=== PATIENT | female | born 1970 | race American Indian/Alaskan Native ===

== ENCOUNTER 2020-02-24 11:51 | Emergency (ER) | payer SELFPAY ==
[2020-02-24] MEDS ORDERED: IBUPROFEN 800 MG TAB PO ONE (15:27)
--- NOTE | 2020-02-24 15:33 | Emergency Department Report ---
ED General Adult HPI - General Chief complaint: Extremity Injury, Upper Stated complaint: RT ARM INJURY AT WORK Time Seen by Provider: 02/24/20 14:48 Source: patient Mode of arrival: Ambulatory Limitations: No Limitations - History of Present Illness Initial comments: 49-year-old -[place] female patient presents with complaints of right elbow pain shooting down into her handx last night. Patient states her symptoms started immediately after lifting a heavy object last night at work. She rates her current pain as a 9/10 in severity and states it worsens with movement of her hand and elbow. She denies any numbness/tingling/weakness into her arm or hand and also reports it feels like a rushing sensation. No previous elbow injuries or redness per patient. -: Sudden - Related Data Previous Rx's Medication Instructions Recorded Last Taken Type Diclofenac Sodium 50 mg PO TID PRN #21 tablet. 02/24/20 Unknown Rx Allergies Allergy/AdvReac Type Severity Reaction Status Date / Time No Known Allergies Allergy Unverified 10/29/13 10:12 ED Review of Systems ROS: Stated complaint: RT ARM INJURY AT WORK Other details as noted in HPI Constitutional: denies: chills, diaphoresis, fever, malaise, weakness Musculoskeletal: arthralgia. denies: joint swelling Skin: denies: rash, lesions, change in color ED Past Medical Hx - Past Medical History Previous Medical History?: No - Surgical History Additional Surgical History: right shoulder and tubal ligation - Social History Smoking Status: Never Smoker - Medications Home Medications: Home Medications Medication Instructions Recorded Confirmed Last Taken Type Diclofenac Sodium 50 mg PO TID PRN #21 tablet. 02/24/20 Unknown Rx ED Physical Exam - General Limitations: No Limitations General appearance: alert, in no apparent distress - Head Head exam: Present: atraumatic, normocephalic - Eye Eye exam: Present: normal appearance. Absent: scleral icterus - Respiratory Respiratory exam: Present: normal lung sounds bilaterally. Absent: respiratory distress - Cardiovascular Cardiovascular Exam: Present: regular rate, normal rhythm. Absent: systolic murmur, diastolic murmur, rubs, gallop - Expanded Upper Extremity Exam Right Elbow exam: Present: tenderness (lateral tenderness ). Absent: swelling, abrasion, laceration, ecchymosis, erythema Hand Wrist exam: Present: normal inspection, full ROM. Absent: tenderness, swelling - Neurological Exam Neurological exam: Present: alert, oriented X3 - Psychiatric Psychiatric exam: Present: normal affect, normal mood - Skin Skin exam: Present: warm, dry, intact, normal color. Absent: rash, cyanosis, diaphoretic, ecchymosis ED Course Vital Signs 02/24/20 02/24/20 02/24/20 12:11 16:38 17:36 Temperature 98.1 F Pulse Rate 113 H 95 H Respiratory 19 18 18 Rate Blood Pressure 129/81 Blood Pressure 136/72 [Right] O2 Sat by Pulse 100 100 Oximetry ED Medical Decision Making - Radiology Data Radiology results: report reviewed RIGHT ELBOW, 3 VIEWS INDICATION / CLINICAL INFORMATION: lateral pain. COMPARISON: None available. FINDINGS: No fracture, dislocation, or joint effusion identified. No significant d egenerative change. No appreciable soft tissue abnormality. IMPRESSION: Negative exam. - Medical Decision Making Patient here with right elbow pain after heavy lifting at work yesterday. Tenderness to palpation of the right epicondyle noted on exam so x-ray was performed. X-ray is negative for any acute findings. Suspect symptoms are due to tennis elbow. Recommend patient wear an elbow sleeve and follow-up with orthopedics. She is well-appearing and stable for discharge home. Strict return precautions were discussed in detail with patient who verbalizes un derstanding. Critical care attestation.: If time is entered above; I have spent that time in minutes in the direct care of this critically ill patient, excluding procedure time. ED Disposition Clinical Impression: Lateral epicondylitis (tennis elbow) Qualifiers: Laterality: right Qualified Code(s): M77.11 - Lateral epicondylitis, right elbow Disposition: TO HOME OR SELFCARE Is pt being admited?: No Condition: Stable Instructions: Tennis Elbow (ED) Prescriptions: Diclofenac Sodium 50 mg PO TID PRN #21 tablet.dr COLUNGA Reason: pain Referrals: AFTAB PETERSON MD [Staff Physician] - 3-5 Days Forms: Work/School Release Form(ED)
--- NOTE | 2020-02-24 16:18 | XRay Report ---
RIGHT ELBOW, 3 VIEWS INDICATION / CLINICAL INFORMATION: lateral pain. COMPARISON: None available. FINDINGS: No fracture, dislocation, or joint effusion identified. No significant degenerative change. No apprec iable soft tissue abnormality. IMPRESSION: Negative exam. Signer Name: Cynthia Hopper MD Signed: 02/24/2020 4:13 PM Workstation Name: [id number]
[2020-02-24 18:09] VITALS: BP 136/72
== END 2020-02-24 17:36 | disposition home or self-care (01) ==
LOC: ED 11:51
DX: M77.11 Lateral epicondylitis, right elbow (principal); Z98.51 Tubal ligation status
CPT/HCPCS: 99283

== ENCOUNTER 2020-07-17 10:51 | Emergency (ER) | payer SELFPAY ==
[2020-07-17 11:09] VITALS: BP 133/55
--- NOTE | 2020-07-17 11:17 | Emergency Department Report ---
ED General Adult HPI - General Chief complaint: Pain General Stated complaint: BODY PAIN/CHILL/NAUSEA Time Seen by Provider: 07/17/20 11:10 Source: patient Mode of arrival: Ambulatory Limitations: No Limitations - History of Present Illness Initial comments: Patient is a 50-year-old female presents emergency room complaints of urinary frequency that began 2 weeks ago. She states over the last week she has began experiencing suprapubic abdominal pressure, back pain, odor to her urine her urine, nausea. She denies any dysuria, vaginal discharge, vomiting, diarrhea, fever. She has a past medical history of hyperthyroidism and takes methimazole. No allergies to medications. Last menstrual cycle 06/21/2021. - Related Data Previous Rx's Medication Instructions Recorded Last Taken Type Diclofenac Sodium 50 mg PO TID PRN #21 tablet. 02/24/20 Unknown Rx Docusate Sodium [Colace] 100 mg PO BID #60 capsule 07/17/20 Unknown Rx Ferrous Sulfate [Ferrous Sulfate 324 mg PO DAILY #30 tablet. 07/17/20 Unknown Rx 324 MG] methOCARBAMOL [Robaxin TAB] 500 mg PO BID PRN #14 tab 07/17/20 Unknown Rx Allergies Allergy/AdvReac Type Severity Reaction Status Date / Time No Known Allergies Allergy Unverified 10/29/13 10:12 ED Review of Systems ROS: Stated complaint: BODY PAIN/CHILL/NAUSEA Other details as noted in HPI Comment: All other systems reviewed and negative ED Past Medical Hx - Past Medical History Previous Medical History?: No - Surgical History Past Surgical History?: Yes Additional Surgical History: right shoulder and tubal ligation - Social History Smoking Status: Never Smoker Substance Use Type: Other - Medications Home Medications: Home Medications Medication Instructions Recorded Confirmed Last Taken Type Diclofenac Sodium 50 mg PO TID PRN #21 tablet. 02/24/20 Unknown Rx Docusate Sodium [Colace] 100 mg PO BID #60 capsule 07/17/20 Unknown Rx Ferrous Sulfate [Ferrous Sulfate 324 mg PO DAILY #30 tablet. 07/17/20 Unknown Rx 324 MG] methOCARBAMOL [Robaxin TAB] 500 mg PO BID PRN #14 tab 07/17/20 Unknown Rx ED Physical Exam - General Limitations: No Limitations General appearance: alert, in no apparent distress - Head Head exam: Present: atraumatic, normocephalic - Eye Eye exam: Present: normal appearance - ENT ENT exam: Present: mucous membranes moist - Respiratory Respiratory exam: Present: normal lung sounds bilaterally. Absent: respiratory distress, wheezes, rales, rhonchi, stridor, chest wall tenderness, accessory muscle use, decreased breath sounds, prolonged expiratory - Cardiovascular Cardiovascular Exam: Present: regular rate, normal rhythm, normal heart sounds. Absent: systolic murmur, diastolic murmur, rubs, gallop - GI/Abdominal GI/Abdominal exam: Present: soft, normal bowel sounds. Absent: distended, tenderness, guarding, rebound, rigid - Back Exam Back exam: Absent: CVA tenderness (R), CVA tenderness (L) - Neurological Exam Neurological exam: Present: alert, oriented X3 - Psychiatric Psychiatric exam: Present: normal affect, normal mood - Skin Skin exam: Present: warm, dry, intact ED Course Vital Signs 07/17/20 11:07 Temperature 98.4 F Pulse Rate 96 H Respiratory 20 Rate Blood Pressure 133/55 O2 Sat by Pulse 100 Oximetry ED Medical Decision Making - Lab Data Result diagrams: 07/17/20 12:45 07/17/20 12:45 Lab Results 07/17/20 07/17/20 07/17/20 Range/Units 11:38 12:45 12:45 WBC 6.2 (4.5-11.0) K/mm3 RBC 4.51 (3.65-5.03) M/mm3 Hgb 7.9 L (10.1-14.3) gm/dl Hct 26.9 L (30.3-42.9) % MCV 60 L (79-97) fl MCH 18 L (28-32) pg MCHC 29 L (30-34) % RDW 22.6 H (13.2-15.2) % Plt Count 319 (140-440) K/mm3 Lymph % (Auto) Pipe Racker Add Manual Diff Complete Total Counted 100 Seg Neutrophils % Pipe Racker Seg Neuts % (Manual) 46.0 (40.0-70.0) % Lymphocytes % (Manual) 42.0 H (13.4-35.0) % Monocytes % (Manual) 4.0 (0.0-7.3) % Eosinophils % (Manual) 3.0 (0.0-4.3) % Metamyelocytes % 5.0 % Nucleated RBC % Not Reportable Seg Neutrophils # Man 2.9 (1.8-7.7) K/mm3 Band Neutrophils # 0.0 K/mm3 Lymphocytes # (Manual) 2.6 (1.2-5.4) K/mm3 Abs React Lymphs (Man) 0.0 K/mm3 Monocytes # (Manual) 0.2 (0.0-0.8) K/mm3 Eosinophils # (Manual) 0.2 (0.0-0.4) K/mm3 Basophils # (Manual) 0.0 (0.0-0.1) K/mm3 Metamyelocytes # 0.3 K/mm3 Myelocytes # 0.0 K/mm3 Promyelocytes # 0.0 K/mm3 Blast Cells # 0.0 K/mm3 WBC Morphology Not Reportable Hypersegmented Neuts Not Reportable Hyposegmented Neuts Not Reportable Hypogranular Neuts Not Reportable Smudge Cells Not Reportable Toxic Granulation Not Reportable Toxic Vacuolation Not Reportable Dohle Bodies Not Reportable Pelger-Huet Anomaly Not Reportable Siena Rods Not Reportable Platelet Estimate Consistent w auto Clumped Platelets Not Reportable Plt Clumps, EDTA Not Reportable Large Platelets Not Reportable Giant Platelets Not Reportable Platelet Satelliting Not Reportable Plt Morphology Comment Not Reportable RBC Morphology Not Reportable Dimorphic RBCs Not Reportable Polychromasia Not Reportable Hypochromasia 2+ Poikilocytosis Not Reportable Anisocytosis Not Reportable Microcytosis Not Reportable Macrocytosis Not Reportable Spherocytes Not Reportable Pappenheimer Bodies Not Reportable Sickle Cells Not Reportable Target Cells 2+ Tear Drop Cells Not Reportable Ovalocytes Not Reportable Helmet Cells Not Reportable Tony-Finley Bodies Not Reportable Vernon Rings Not Reportable Sumner Cells Not Reportable Bite Cells Not Reportable Crenated Cell Not Reportable Elliptocytes Few Acanthocytes (Spur) Not Reportable Rouleaux Not Reportable Hemoglobin C Crystals Not Reportable Schistocytes Not Reportable Malaria parasites Not Reportable Jostin Bodies Not Reportable Hem Pathologist Commnt No Sodium 139 (137-145) mmol/L Potassium 4.3 (3.6-5.0) mmol/L Chloride 103.7 (98-107) mmol/L Carbon Dioxide 25 (22-30) mmol/L Anion Gap 15 mmol/L BUN 11 (7-17) mg/dL Creatinine 0.5 L (0.6-1.2) mg/dL Estimated GFR > 60 ml/min BUN/Creatinine Ratio 22 % Glucose 95 (65-100) mg/dL Calcium 9.1 (8.4-10.2) mg/dL Total Bilirubin 0.20 (0.1-1.2) mg/dL AST 15 (5-40) units/L ALT 12 (7-56) units/L Alkaline Phosphatase 70 (35-129) units/L Total Protein 6.6 (6.3-8.2) g/dL Albumin 4.1 (3.9-5) g/dL Albumin/Globulin Ratio 1.6 % Urine Color Yellow (Yellow) Urine Turbidity Clear (Clear) Urine pH 8.0 H (5.0-7.0) Ur Specific Laurens 1.025 (1.003-1.030) Urine Protein 30 mg/dl (Negative) mg/dL Urine Glucose (UA) Neg (Negative) mg/dL Urine Ketones Neg (Negative) mg/dL Urine Blood Neg (Negative) Urine Nitrite Neg (Negative) Urine Bilirubin Neg (Negative) Urine Urobilinogen < 2.0 (<2.0) mg/dL Ur Leukocyte Esterase Neg (Negative) Urine WBC (Auto) < 1.0 (0.0-6.0) /HPF Urine RBC (Auto) 2.0 (0.0-6.0) /HPF U Epithel Cells (Auto) 4.0 (0-13.0) /HPF Urine Mucus Few /HPF Urine HCG, Qual Negative (Negative) 07/17/20 Range/Units 12:45 WBC (4.5-11.0) K/mm3 RBC (3.65-5.03) M/mm3 Hgb (10.1-14.3) gm/dl Hct (30.3-42.9) % MCV (79-97) fl MCH (28-32) pg MCHC (30-34) % RDW (13.2-15.2) % Plt Count (140-440) K/mm3 Lymph % (Auto) Add Manual Diff Total Counted Seg Neutrophils % Seg Neuts % (Manual) (40.0-70.0) % Lymphocytes % (Manual) (13.4-35.0) % Monocytes % (Manual) (0.0-7.3) % Eosinophils % (Manual) (0.0-4.3) % Metamyelocytes % % Nucleated RBC % Seg Neutrophils # Man (1.8-7.7) K/mm3 Band Neutrophils # K/mm3 Lymphocytes # (Manual) (1.2-5.4) K/mm3 Abs React Lymphs (Man) K/mm3 Monocytes # (Manual) (0.0-0.8) K/mm3 Eosinophils # (Manual) (0.0-0.4) K/mm3 Basophils # (Manual) (0.0-0.1) K/mm3 Metamyelocytes # K/mm3 Myelocytes # K/mm3 Promyelocytes # K/mm3 Blast Cells # K/mm3 WBC Morphology TNR Hypersegmented Neuts Hyposegmented Neuts Hypogranular Neuts Smudge Cells Toxic Granulation Toxic Vacuolation Dohle Bodies Pelger-Huet Anomaly Siena Rods Platelet Estimate Clumped Platelets Plt Clumps, EDTA Large Platelets Giant Platelets Platelet Satelliting Plt Morphology Comment RBC Morphology Dimorphic RBCs Polychromasia Hypochromasia Poikilocytosis Anisocytosis Microcytosis Macrocytosis Spherocytes Pappenheimer Bodies Sickle Cells Target Cells Tear Drop Cells Ovalocytes Helmet Cells Tony-Finley Bodies Vernon Rings Sumner Cells Bite Cells Crenated Cell Elliptocytes Acanthocytes (Spur) Rouleaux Hemoglobin C Crystals Schistocytes Malaria parasites Jostin Bodies Hem Pathologist Commnt Sodium (137-145) mmol/L Potassium (3.6-5.0) mmol/L Chloride (98-107) mmol/L Carbon Dioxide (22-30) mmol/L Anion Gap mmol/L BUN (7-17) mg/dL Creatinine (0.6-1.2) mg/dL Estimated GFR ml/min BUN/Creatinine Ratio % Glucose (65-100) mg/dL Calcium (8.4-10.2) mg/dL Total Bilirubin (0.1-1.2) mg/dL AST (5-40) units/L ALT (7-56) units/L Alkaline Phosphatase (35-129) units/L Total Protein (6.3-8.2) g/dL Albumin (3.9-5) g/dL Albumin/Globulin Ratio % Urine Color (Yellow) Urine Turbidity (Clear) Urine pH (5.0-7.0) Ur Specific Laurens (1.003-1.030) Urine Protein (Negative) mg/dL Urine Glucose (UA) (Negative) mg/dL Urine Ketones (Negative) mg/dL Urine Blood (Negative) Urine Nitrite (Negative) Urine Bilirubin (Negative) Urine Urobilinogen (<2.0) mg/dL Ur Leukocyte Esterase (Negative) Urine WBC (Auto) (0.0-6.0) /HPF Urine RBC (Auto) (0.0-6.0) /HPF U Epithel Cells (Auto) (0-13.0) /HPF Urine Mucus /HPF Urine HCG, Qual (Negative) - Medical Decision Making Patient is a 50-year-old female presents emergency room complaints of urinary frequency that began 2 weeks ago. She states over the last week she has began experiencing suprapubic abdominal pressure, back pain, odor to her urine her urine, nausea. She denies any dysuria, vaginal discharge, vomiting, diarrhea, fever. She has a past medical history of hyperthyroidism and takes methimazole. No allergies to medications. Last menstrual cycle 06/21/2021. Vitals are normal. No abdominal tenderness on exam, no guarding, urine, no rigidity, nor bowel sounds, no peritoneal signs. Labs with stable anemia. UA is within normal limits. Urine is negative. Offered patient pelvic examination and STD testing/prophylactic treatment and she politely declined and states that "she does not have an STD." Patient be referred to [facility] and primary care. Patient given prescription for Robaxin, ferrous sulfate, Colace. Advised patient Please take medication as prescribed. Do not drive or operate machinery while taking muscle max Robaxin. Increase your fluid intake. Follow-up with your primary care doctor. Follow-up with [facility]. Return to emergency room for any new or worsening symptoms. Critical care attestation.: If time is entered above; I have spent that time in minutes in the direct care of this critically ill patient, excluding procedure time. ED Disposition Clinical Impression: Urinary frequency, Microcytic anemia Disposition: TO HOME OR SELFCARE Is pt being admited?: No Does the pt Need Aspirin: No Condition: Stable Instructions: Urinary Frequency, Adult, Iron-Rich Diet Additional Instructions: Please take medication as prescribed. Do not drive or operate machinery while taking muscle max Robaxin. Increase your fluid intake. Follow-up with your primary care doctor. Follow-up with [facility]. Return to emergency room for any new or worsening symptoms. Prescriptions: Docusate Sodium [Colace] 100 mg PO BID #60 capsule Ferrous Sulfate [Ferrous Sulfate 324 MG] 324 mg PO DAILY #30 tablet. methOCARBAMOL [Robaxin TAB] 500 mg PO BID PRN #14 tab PRN Reason: pain Referrals: DIALLO RICHARDSONMILAN MD SHAY [Primary Care Provider] - 2-3 Days GURPREET JORGE MD [Staff Physician] - 2-3 Days [facility] [Provider Group] - 2-3 Days [facility] [Provider Group] - 2-3 Days [facility] [Provider Group] - 2-3 Days Time of Disposition: 13:55 Print Language: CITIZ[place]
[2020-07-17 11:57] LABS: Bilirubin,Urine NEG (Negative); Blood,Urine NEG (Negative); Color,Urine Yellow (Yellow); Mucus,Urine FEW /HPF; Urobilinogen,Urine < 2.0 mg/dL (<2.0); WBC,Urine < 1.0 /HPF (0.0-6.0)
[2020-07-17 12:28] LABS: HCG Qualitative,Urine Negative (Negative)
[2020-07-17 13:31] LABS: Alanine Aminotransferase 12 units/L (7-56); Albumin 4.1 g/dL (3.9-5); Blood Urea Nitrogen 11 mg/dL (7-17); Calcium 9.1 mg/dL (8.4-10.2); Hemolysis Index 6
[2020-07-17 13:33] LABS: BUN/Creatinine Ratio 22
[2020-07-17 13:38] LABS: Hematocrit 26.9 % (30.3-42.9); Hemoglobin 7.9 gm/dl (10.1-14.3); Mean Corpuscular HGB Conc 29 % (30-34); Mean Corpuscular Volume 60 fl (79-97); Platelet Count 319 K/mm3 (140-440); Red Blood Count 4.51 M/mm3 (3.65-5.03); Red Cell Distribution Width 22.6 % (13.2-15.2)
[2020-07-17 15:44] LABS: Hypochromasia 2+; Total Cells Counted 100
[2020-07-17 15:46] LABS: Platelet Estimate Consistent w Auto; Target Cells 2+
== END 2020-07-17 14:22 | disposition home or self-care (01) ==
LOC: ED 10:51
DX: D50.9 Iron deficiency anemia, unspecified (principal); R35.0 Frequency of micturition; Z79.899 Other long term (current) drug therapy; Z98.890 Other specified postprocedural states; Z98.51 Tubal ligation status
CPT/HCPCS: 36415; 80053; 81001; 81025; 85007; 85025; 99283

== ENCOUNTER 2021-07-23 09:11 | Emergency (ER) | payer SELFPAY ==
[2021-07-23] MEDS ORDERED: LORazepam 2 MG/ML VIAL IV ONE (09:47)
[2021-07-23] MEDS ORDERED: atenoloL 25 MG TAB PO STA (10:26)
--- NOTE | 2021-07-23 10:34 | Emergency Department Report ---
ED Psych HPI - General Chief Complaint: Medical Clearance Stated Complaint: RAPID HEARTRATE/HEAD/SHOULDER PAIN/TREMBLING Time Seen by Provider: 07/23/21 09:37 Source: patient Mode of arrival: Ambulatory - History of Present Illness Initial Comments: Chief complaint: "I cannot sleep. My heart is racing. I cannot focus." HPI: This is a 51-year-old female with history of depression and hypothyroidism who presents with insomnia, palpitations, anxiety, depression, auditory and visual hallucinations. She has command hallucinations telling her to just "kill her self." Her symptoms began when her son left for the [place]. She has been treating hyperthyroidism with bugleweed herbal [id number] drops. She does not have health insurance. Consequently she cannot obtain medical care. She stopped taking Zoloft several years ago. She has voices that tell her to just " kill yourself". She sees "stuff that's not even there." MD Complaint: suicidal ideation, feels depressed, other (Hallucinations insomnia) -: week(s) (Several weeks) Associated Psychiatric Symptoms: depression, suicidal ideation, racing thoughts, auditory hallucinations, visual hallucinations History of same: Yes Quality: constant Improves With: none Worsens With: none Context: not taking psychiatric, significant life stressor (Son recently left the [employer], unable to afford medical care without health insurance) Treatments Prior to Arrival: none If Self Harm: admits thoughts of - Related Data Previous Rx's Medication Instructions Recorded Last Taken Type Diclofenac Sodium 50 mg PO TID PRN #21 tablet. 02/24/20 Unknown Rx Docusate Sodium [Colace] 100 mg PO BID #60 capsule 07/17/20 Unknown Rx Ferrous Sulfate [Ferrous Sulfate 324 mg PO DAILY #30 tablet. 07/17/20 Unknown Rx 324 MG] methOCARBAMOL [Robaxin TAB] 500 mg PO BID PRN #14 tab 07/17/20 Unknown Rx atenoloL [Tenormin] 25 mg PO DAILY #30 tab 07/23/21 Unknown Rx methIMAzole [Methimazole] 10 mg PO DAILY 30 Days #30 07/23/21 Unknown Rx Mirtazapine [Remeron 15mg TAB] 15 mg PO QHS 30 Days #30 07/24/21 Unknown Rx buPROPion XL [Wellbutrin Xl] 150 mg PO QAM 30 Days #30 07/24/21 Unknown Rx Allergies Allergy/AdvReac Type Severity Reaction Status Date / Time No Known Allergies Allergy Unverified 10/29/13 10:12 ED Review of Systems ROS: Stated complaint: RAPID HEARTRATE/HEAD/SHOULDER PAIN/TREMBLING Other details as noted in HPI Comment: All other systems reviewed and negative Constitutional: denies: chills, fever, malaise Respiratory: denies: cough, shortness of breath Cardiovascular: palpitations. denies: chest pain Skin: denies: rash, lesions Psychiatric: anxiety, depression, auditory hallucinations, visual hallucinations, suicidal thoughts. denies: homicidal thoughts ED Past Medical Hx - Past Medical History Previous Medical History?: Yes Hx Psychiatric Treatment: Yes (depression) Additional medical history: Hyperthyroidism - Surgical History Past Surgical History?: Yes Additional Surgical History: right shoulder and tubal ligation - Social History Smoking Status: Never Smoker Substance Use Type: Marijuana - Medications Home Medications: Home Medications Medication Instructions Recorded Confirmed Last Taken Type Diclofenac Sodium 50 mg PO TID PRN #21 tablet. 02/24/20 Unknown Rx Docusate Sodium [Colace] 100 mg PO BID #60 capsule 07/17/20 Unknown Rx Ferrous Sulfate [Ferrous Sulfate 324 mg PO DAILY #30 tablet. 07/17/20 Unknown Rx 324 MG] methOCARBAMOL [Robaxin TAB] 500 mg PO BID PRN #14 tab 07/17/20 Unknown Rx atenoloL [Tenormin] 25 mg PO DAILY #30 tab 07/23/21 Unknown Rx methIMAzole [Methimazole] 10 mg PO DAILY 30 Days #30 07/23/21 Unknown Rx Mirtazapine [Remeron 15mg TAB] 15 mg PO QHS 30 Days #30 07/24/21 Unknown Rx buPROPion XL [Wellbutrin Xl] 150 mg PO QAM 30 Days #30 07/24/21 Unknown Rx ED Physical Exam - General Limitations: No Limitations General appearance: alert, other (Extreme emotional distress, tearful wailing crying uncontrollably pressured speech) - Head Head exam: Present: atraumatic, normocephalic - Eye Eye exam: Present: normal appearance - ENT ENT exam: Present: mucous membranes moist - Neck Neck exam: Present: normal inspection, full ROM - Respiratory Respiratory exam: Present: normal lung sounds bilaterally. Absent: respiratory distress, wheezes, rales, rhonchi - Cardiovascular Cardiovascular Exam: Present: regular rate, normal rhythm, normal heart sounds. Absent: systolic murmur, diastolic murmur, rubs, gallop - GI/Abdominal GI/Abdominal exam: Present: soft, normal bowel sounds. Absent: distended, tenderness, guarding, rebound - Extremities Exam Extremities exam: Present: normal inspection - Back Exam Back exam: Present: normal inspection - Neurological Exam Neurological exam: Present: alert, oriented X3 - Psychiatric Psychiatric exam: Present: normal affect, depressed, other (Extremely upset, crying uncontrollably,) - Skin Skin exam: Present: warm, dry, intact, normal color. Absent: rash ED Course Vital Signs 07/23/21 07/23/21 07/23/21 09:30 10:13 11:22 Temperature 98.3 F Pulse Rate 145 H 124 H 130 H Respiratory 20 20 33 H Rate Blood Pressure 154/85 120/69 Blood Pressure 157/93 [Right] O2 Sat by Pulse 100 100 99 Oximetry 07/23/21 07/23/21 07/23/21 11:30 11:52 12:00 Temperature Pulse Rate 126 H 124 H 136 H Respiratory 34 H 36 H 25 H Rate Blood Pressure 127/75 127/75 119/55 Blood Pressure [Right] O2 Sat by Pulse 98 99 Oximetry 07/23/21 07/23/21 07/23/21 12:16 12:30 12:46 Temperature Pulse Rate 121 H 128 H 115 H Respiratory 25 H 24 24 Rate Blood Pressure 119/55 124/65 124/65 Blood Pressure [Right] O2 Sat by Pulse 99 98 98 Oximetry 07/23/21 07/23/21 07/23/21 12:53 13:00 13:20 Temperature Pulse Rate 126 H 119 H 116 H Respiratory 17 Rate Blood Pressure 117/70 124/74 124/74 Blood Pressure [Right] O2 Sat by Pulse 93 99 Oximetry 07/23/21 07/23/21 07/23/21 13:30 13:48 14:00 Temperature Pulse Rate 120 H 123 H 126 H Respiratory 30 H 35 H 31 H Rate Blood Pressure 118/62 118/62 133/70 Blood Pressure [Right] O2 Sat by Pulse 100 100 Oximetry 07/23/21 07/23/21 07/23/21 14:16 14:30 15:00 Temperature Pulse Rate 112 H 116 H 116 H Respiratory 22 24 29 H Rate Blood Pressure 133/70 121/71 124/73 Blood Pressure [Right] O2 Sat by Pulse 98 100 Oximetry 07/23/21 07/23/21 07/23/21 15:30 16:02 16:30 Temperature Pulse Rate 112 H 115 H 105 H Respiratory 32 H 20 15 Rate Blood Pressure 121/73 121/73 136/83 Blood Pressure [Right] O2 Sat by Pulse 99 Oximetry 07/23/21 07/23/21 07/23/21 17:26 17:30 18:00 Temperature Pulse Rate 116 H 111 H Respiratory 22 25 H 24 Rate Blood Pressure 118/80 122/76 123/77 Blood Pressure [Right] O2 Sat by Pulse 99 98 Oximetry 07/23/21 07/23/21 07/24/21 18:30 20:48 03:25 Temperature 98.6 F 98.6 F Pulse Rate 114 H 103 H 119 H Respiratory 18 18 18 Rate Blood Pressure 125/78 Blood Pressure 118/48 128/74 [Right] O2 Sat by Pulse 98 98 97 Oximetry 07/24/21 07/24/21 07/24/21 09:37 09:38 20:29 Temperature 98.2 F 99.4 F Pulse Rate 109 H 116 H Respiratory 18 18 Rate Blood Pressure Blood Pressure 143/92 114/70 [Right] O2 Sat by Pulse 98 98 98 Oximetry ED Medical Decision Making - Lab Data Result diagrams: 07/23/21 10:01 07/23/21 10:01 - EKG Data EKG shows normal: sinus rhythm, axis, intervals, QRS complexes, ST-T waves Rate: tachycardia - EKG Data 07/23/21 11:18 EKG obtained at 1100 EKG interpreted by in Rate 120 bpm sinus tachycardia normal axis normal intervals nonischemic T wave pattern no ST elevation - Medical Decision Making 1. Severe depression with psychotic features of auditory visual hallucinations. Previously took Zoloft. She has command hallucinations to "just kill her self." [address] ED hold protocol. IV Ativan given for patient comfort. Patient feels much better. She desires to be discharged tomorrow. I also ordered Zoloft to be given daily first dose now. 2. Hyperthyroidism due to medication noncompliance. TSH is expectedly low 0.005. Significantly elevated T4. Patient does not have access to health care with lack of insurance.. With lack of health care insurance. Atenolol, methimazole, cholestyramine ordered for hyperthyroidism management. I have prescribed atenolol and methimazole in anticipation of discharge tomorrow Patient is medically clear for psychiatric care. CBC chemistry serum toxicology all within normal limits. Critical care attestation.: If time is entered above; I have spent that time in minutes in the direct care of this critically ill patient, excluding procedure time. ED Disposition Clinical Impression: Acute depression, Hyperthyroidism Disposition: HOME / SELF CARE / HOMELESS Is pt being admited?: No Does the pt Need Aspirin: No Condition: Stable Additional Instructions: Professional and Agency Contacts To help [facility](21/01) [place] Crisis Line: Suicide Prevention Line: Crisis Text Line: Text START to 388273 Emergency: 911 Outpatient COMMUNITY Behavioral Health Resources: [facility]: [facility] [address] [place], [place] [address] [address] [facility]: [facility] - [address] [place] [address] Saturday thru Saturday - 8am - 5pm [facility] Address: [address] [place] [address] [facility] Address: [address] [place] [address] Saturday thru Saturday- 7am-2pm [facility] Address: [address] [place] [address] Saturday thru Saturday: 8:30AM-5PM Prescriptions: Mirtazapine [Remeron 15mg TAB] 15 mg PO QHS 30 Days #30 methIMAzole [Methimazole] 10 mg PO DAILY 30 Days #30 atenoloL [Tenormin] 25 mg PO DAILY #30 tab buPROPion XL [Wellbutrin Xl] 150 mg PO QAM 30 Days #30 Referrals: PRIMARY CARE, [Primary Care Provider] - 3-5 Days
[2021-07-23 10:39] LABS: Mean Corpuscular HGB Conc 31 % (30-34); Mean Corpuscular Volume 75 fl (79-97); Platelet Count 270 K/mm3 (140-440); Red Blood Count 5.49 M/mm3 (3.65-5.03); Red Cell Distribution Width 15.5 % (13.2-15.2)
[2021-07-23 10:54] LABS: Hematocrit 40.9 % (30.3-42.9); Hemoglobin 12.5 gm/dl (10.1-14.3)
[2021-07-23 11:00] LABS: Alanine Aminotransferase 43 units/L (7-56); Albumin 4.1 g/dL (3.9-5); Blood Urea Nitrogen 10 mg/dL (7-17); Calcium 10.1 mg/dL (8.4-10.2); Hemolysis Index 3
[2021-07-23 11:14] LABS: BUN/Creatinine Ratio 25
[2021-07-23 11:46] LABS: Basophils % (Manual) 0 % (0.0-1.8); Total Cells Counted 100
[2021-07-23 11:47] LABS: Platelet Estimate Consistent w Auto; Target Cells Few
[2021-07-23 12:17] LABS: Amphetamine Screen,Urine Negative; Benzodiazepines Screen,Urine Negative; Cannabinoid Screen,Urine Negative; Cocaine Screen,Urine Negative; Methadone Screen,Urine Negative; Opiate Screen,Urine Negative
[2021-07-23 12:36] LABS: Bacteria,Urine 1+ /HPF (Negative); Bilirubin,Urine NEG (Negative); Blood,Urine NEG (Negative); Color,Urine Yellow (Yellow); Mucus,Urine FEW /HPF; Protein,Urine <15 mg/dL mg/dL (Negative); Urobilinogen,Urine < 2.0 mg/dL (<2.0)
[2021-07-23] MEDS ORDERED: atenoloL 25 MG TAB ONE (12:49)
[2021-07-23] MEDS: SERTRALINE 50 MG TAB PO SCH (12:55)
[2021-07-23] MEDS: CHOLESTYRAMINE (WITH SUGAR) 4 GM PACKET PO SCH ×2 (13:20→22:03)
[2021-07-23] MEDS: methIMAzole 5 MG TAB PO SCH (13:21)
[2021-07-23] MEDS ORDERED: ACETAMINOPHEN 500 MG TAB PO ONE (14:36)
[2021-07-23] MEDS ORDERED: TEMAZEPAM 15 MG CAP PO ONE ×2 (18:35→19:15)
--- NOTE | 2021-07-24 10:22 | Consultation ---
History of Present Illness - Reason for Consult Consult date: 07/24/21 Reason for consult: suicidal ideation - History of Present Psychiatric Illness ED Note: This is a 51-year-old female with history of depression and hypothyroidism who presents with insomnia, palpitations, anxiety, depression, auditory and visual hallucinations. She has command hallucinations telling her to just "kill her self." Her symptoms began when her son left for the [employer]. She has been treating hyperthyroidism with bugleweed herbal [id number]-eov-[id number] drops. She does not have health insurance. Consequently she cannot obtain medical care. She stopped taking Zoloft several years ago. She has voices that tell her to just "kill yourself". She sees "stuff that's not even there." MD Complaint: suicidal ideation, feels depressed. Jennifer Law is a 51 year old female with history of depression and anxiety. In my interview with the patient, she states she was having palpitation and pain in her head when she came to the ED. The patient endorses depression, difficulty with concentration and insomnia. She states she has been very worried about her son in the . The patient also states recent stressor such as being in school and taking online classes. The patient states she has a 2 pm meeting with her outbound sales representative today. She denies any current suicidal/homicidal ideation and denies hallucinations. PAST PSYCHIATRIC HISTORY: Diagnoses: Denies Suicide attempts or Self-harm behavior: Yes Prior psychiatric hospitalizations: Yes Substance Abuse history: Marijuana Previous psychiatric medications tried:Zoloft Outpatient treatment:unknown PAST MEDICAL HISTORY: Family Psychiatric History: None reported or documented SOCIAL HISTORY Marital Status: Single Living Arrangements: Lives alone Employment Status:employed Access to guns/weapons: Denies Education: some college History of Abuse: Yes Legal History:Unknown REVIEW OF SYSTEMS Constitutional: Negative for weight loss ENT: Negative for stridor Respiratory: Negative for cough or hemoptysis All other systems reviewed and are negative MENTAL STATUS EXAMINATION General Appearance and Behavior: Age appropriate, good hygiene, wearing appropriate clothes, cooperative polite with questioning. Cooperation: cooperative Psychomotor Behavior: Normal Mood:Depressed Affect and affective range:congruent Thought Process:Goal directed Thought Content:Reality oriented Speech:Normal Intellectual Functioning: Average Suicidal Ideation:Denies Homicidal Ideation: Denies Hallucination: Denies Impulse Control:Normal Insight and Judgment:limited insight and good judgment Memory: Intact Attention:Normal Orientation: Alert and oriented Diagnoses: Major depressive disorder recurrent (1) Treatment Plan: Continue - Home Medications. Dc 1013 Start Wellbutrin XL 150mg po daily Start Remeron 15mg po QHS Patient should be compliant with medications and not to use drugs and not to drink alcohol. PSYCHOTHERAPY: Supportive psychotherapy provided MEDICAL: Per primary team DELIRIUM PRECAUTIONS: Please re-orient patient frequently, keep lights on during the day, and minimize benzodiazepines and opiates as these medications could worsen patient's confusion. APIGEE DEVELOPER: Per medical team DISPOSITION: Do not recommend acute inpatient psychiatric hospitalization at this time. Drafter Detail will provide patient with psychiatric outpatient resources. FOLLOW-UP: Will sign off. Thank you for the consult. Please contact with any questions and/or concerns. Medications and Allergies Allergies Allergy/AdvReac Type Severity Reaction Status Date / Time No Known Allergies Allergy Unverified 10/29/13 10:12 Home Medications Medication Instructions Recorded Confirmed Last Taken Type Diclofenac Sodium 50 mg PO TID PRN #21 tablet. 02/24/20 Unknown Rx Docusate Sodium [Colace] 100 mg PO BID #60 capsule 07/17/20 Unknown Rx Ferrous Sulfate [Ferrous Sulfate 324 mg PO DAILY #30 tablet. 07/17/20 Unknown Rx 324 MG] methOCARBAMOL [Robaxin TAB] 500 mg PO BID PRN #14 tab 07/17/20 Unknown Rx atenoloL [Tenormin] 25 mg PO DAILY #30 tab 07/23/21 Unknown Rx methIMAzole [Methimazole] 10 mg PO DAILY 30 Days #30 07/23/21 Unknown Rx Mirtazapine [Remeron 15mg TAB] 15 mg PO QHS 30 Days #30 07/24/21 Unknown Rx buPROPion XL [Wellbutrin Xl] 150 mg PO QAM 30 Days #30 07/24/21 Unknown Rx Active Meds: Active Medications Cholestyramine Resin (Cholestyramine (With Sugar) 4 Gm Packet) 4 gm PO BID [facility] Last Admin: 07/23/21 22:03 Dose: 4 gm Methimazole (Methimazole 5 Mg Tab) 10 mg PO Q24HR [facility] Last Admin: 07/23/21 13:21 Dose: 10 mg Sertraline HCl (Sertraline 50 Mg Tab) 50 mg PO DAILY [facility] Last Admin: 07/23/21 12:55 Dose: 50 mg Mental Status Exam - Vital signs Last Vital Signs Temp 98.2 F 07/24/21 09:37 Pulse 109 H 07/24/21 09:37 Resp 18 07/24/21 09:37 BP 143/92 07/24/21 09:37 Pulse Ox 98 07/24/21 09:38 Results Result Diagrams: 07/23/21 10:01 07/23/21 10:01 Abnormal lab results 07/23/21 07/23/21 07/23/21 Range/Units 10:01 10:01 10:01 WBC 4.4 L (4.5-11.0) K/mm3 RBC 5.49 H (3.65-5.03) M/mm3 MCV 75 L (79-97) fl MCH 23 L (28-32) pg RDW 15.5 H (13.2-15.2) % Monocytes % (Manual) 8.0 H (0.0-7.3) % Creatinine 0.4 L (0.6-1.2) mg/dL TSH 0.005 L (0.270-4.200) mlU/mL Free T4 (0.76-1.46) ng/dL Salicylates (2.8-20.0) mg/dL Acetaminophen (10.0-30.0) ug/mL 07/23/21 07/23/21 07/23/21 Range/Units 10:01 10:01 10:01 WBC (4.5-11.0) K/mm3 RBC (3.65-5.03) M/mm3 MCV (79-97) fl MCH (28-32) pg RDW (13.2-15.2) % Monocytes % (Manual) (0.0-7.3) % Creatinine (0.6-1.2) mg/dL TSH (0.270-4.200) mlU/mL Free T4 7.77 H (0.76-1.46) ng/dL Salicylates < 0.3 L (2.8-20.0) mg/dL Acetaminophen 5.0 L (10.0-30.0) ug/mL All other labs normal.
[2021-07-24] MEDS: CHOLESTYRAMINE (WITH SUGAR) 4 GM PACKET PO SCH (10:25)
[2021-07-24] MEDS: methIMAzole 5 MG TAB PO SCH (10:26)
[2021-07-24] MEDS: SERTRALINE 50 MG TAB PO SCH (10:26)
[2021-07-24] MEDS ORDERED: buPROPion XL 150 MG TAB PO SCH (11:00)
[2021-07-24] MEDS ORDERED: MIRTAZAPINE 15 MG TAB PO SCH (11:00)
[2021-07-24 20:31] VITALS: BP 114/70
--- NOTE | 2021-07-27 13:27 | Electrocardiograph Report ---
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
== END 2021-07-24 11:53 | disposition home or self-care (01) ==
LOC: ED 09:11
DX: F32.9 Major depressive disorder, single episode, unspecified (principal); E05.90 Thyrotoxicosis, unspecified without thyrotoxic crisis or storm; F12.10 Cannabis abuse, uncomplicated
CPT/HCPCS: 36415; 80053; 80307; 81001; 84439; 84443; 85007; 85025; 93005; 93010; 96374; 99284; J2060; U0003; 80320; G0480